=== PATIENT | female | born 1985 | race Caucasian/White ===

== ENCOUNTER 2017-02-26 22:15 | Emergency (ER) | payer BC, OTHER ==
[2017-02-26 22:39] VITALS: BP 127/86
[2017-02-26] MEDS ORDERED: Diazepam 5 MG Tab PO ONE (22:40)
[2017-02-26] MEDS ORDERED: Ketorolac 60 MG/2 ML SDV IM ONE (22:40)
[2017-02-26] MEDS ORDERED: Dexamethasone 4 MG/ML SDV IM ONE (22:40)
--- NOTE | 2017-02-26 22:48 | EDM.PDOC ---
ED HPI GENERAL MEDICAL PROBLEM - General Chief Complaint: Back Pain or Injury Stated Complaint: back pain Time Seen by Provider: 02/26/17 22:40 Source of Information: Reports: Patient History Limitations: Reports: No Limitations - History of Present Illness INITIAL COMMENTS - FREE TEXT/NARRATIVE: PT STATES WHILE WORKING THIS EVENING ABOUT 1930 SHE DEVELOPED LOW BACK PAIN. UNSURE OF SPECIFIC INCIDENT BUT WAS MOVING PATIENTS. DENIES FALL, SADDLE ANESTHESIA, BOWEL OR URINARY INCONT, FLANK PAIN, N/V/D, CP, OR SOB. Onset Date: 02/26/17 Onset Time: 19:30 Location: Reports: Back Quality: Reports: Ache Severity: Mild Improves with: Reports: Rest Worsens with: Reports: Movement Associated Symptoms: Reports: No Other Symptoms Treatments CLINICAL OUTCOMES MANAGER: Reports: Other (see below) (HYDROCODONE) Other Treatments CLINICAL OUTCOMES MANAGER: 2 hydrocodone Middle Back Pain Score (Numeric/FACES): 8 - Related Data Allergies Allergy/AdvReac Type Severity Reaction Status Date / Time lisinopril Allergy Cough Verified 02/26/17 22:43 Home Meds: Home Meds Hydrochlorothiazide 25 mg PO DAILY 01/25/15 [History] Amoxicillin 875 mg PO BID 02/26/17 [History] DULoxetine [Cymbalta] 30 mg PO DAILY 02/26/17 [History] Past Medical History - Past Health History Medical/Surgical History: Denies Medical/Surgical History Other OB/BYN History: -2 Para-2 Other Musculoskeletal History: knee joints have had problems Social & Family History - Tobacco Use Smoking Status *Q: Former Smoker Years of Tobacco use: 16 Used Tobacco, but Quit: Yes Month Tobacco Last Used: September 2014 Second Hand Smoke Exposure: No - Alcohol Use Days Per Week of Alcohol Use: 0 - Recreational Drug Use Recreational Drug Use: No - Living Situation & Occupation Living situation: Reports: Single Occupation: Employed ED ROS GENERAL - Review of Systems Review Of Systems: ROS reveals no pertinent complaints other than HPI. Constitutional: Reports: No Symptoms HEENT: Reports: No Symptoms Respiratory: Reports: No Symptoms Cardiovascular: Reports: No Symptoms Endocrine: Reports: No Symptoms GI/Abdominal: Reports: No Symptoms : Reports: No Symptoms Musculoskeletal: Reports: Back Pain Skin: Reports: No Symptoms Neurological: Reports: No Symptoms Psychiatric: Reports: No Symptoms Hematologic/Lymphatic: Reports: No Symptoms Immunologic: Reports: No Symptoms ED EXAM,LOWER BACK PAIN/INJURY - Physical Exam Exam: See Below Exam Limited By: No Limitations General Appearance: Alert, WD/WN, No Apparent Distress Throat/Mouth: Normal Inspection, Normal Oropharynx, No Airway Compromise Head: Atraumatic, Normocephalic Neck: Normal Inspection, Supple, Non-Tender Respiratory/Chest: No Respiratory Distress, Lungs Clear Cardiovascular: Regular Rate, Rhythm, No Murmur GI/Abdominal: Normal Bowel Sounds, Soft, Non-Tender Back Exam: Decreased Range of Motion (SECONDARY TO PAIN), Paraspinal Tenderness. No: CVA Tenderness (L), CVA Tenderness (R), Vertebral Tenderness Extremities: Normal Inspection, Non-Tender, No Pedal Edema Neurological: Alert, Normal Mood/Affect, Normal Dorsiflexion, Normal Plantar Flexion, No Motor/Sensory Deficits, Oriented x 3 Psychiatric: Normal Affect, Normal Mood Skin Exam: Warm, Dry, Intact, Normal Color, No Rash Lymphatic: No Adenopathy Course - Vital Signs Last Recorded V/S: Last Vital Signs Temp 97.6 F 02/26/17 22:32 Pulse 82 02/26/17 22:32 Resp 20 02/26/17 22:32 BP 127/86 02/26/17 22:32 Pulse Ox 97 02/26/17 22:32 - Orders/Labs/Meds Orders: Active Orders 24 hr Category Date Time Status Dexamethasone Med 02/26/17 22:40 Once 8 mg IM ONETIME ONE Diazepam [Valium] Med 02/26/17 22:40 Once 5 mg PO ONETIME ONE Ketorolac [Toradol] Med 02/26/17 22:40 Once 60 mg IM ONETIME ONE - Re-Assessments/Exams Free Text/Narrative Re-Assessment/Exam: 02/26/17 23:14 PT AFEBRILE, NONTOXIC APPEARING, VSS, DISCOMFORT RELIEVED, AMBULATING WELL. Departure - Departure Time of Disposition: 23:15 Disposition: Home, Self-Care 01 Condition: good Clinical Impression: Muscle strain Low back pain Qualifiers: Chronicity: acute Back pain laterality: unspecified Sciatica presence: without sciatica Qualified Code(s): M54.5 - Low back pain - Discharge Information Instructions: Muscle Strain, [id number], Back Pain, Adult, [id number], Back Injury Prevention, [id number] Forms: ED Department Discharge Additional Instructions: FOLLOW UP WITH YOUR PRIMARY DOCTOR IN 2-3 DAYS. RETURN TO ER SOONER IF SYMPTOMS CONTINUE - My Orders Last 24 Hours: My Active Orders 02/26/17 22:40 Dexamethasone 8 mg IM ONETIME ONE Diazepam [Valium] 5 mg PO ONETIME ONE Ketorolac [Toradol] 60 mg IM ONETIME ONE - Assessment/Plan Last 24 Hours: My Active Orders 02/26/17 22:40 Dexamethasone 8 mg IM ONETIME ONE Diazepam [Valium] 5 mg PO ONETIME ONE Ketorolac [Toradol] 60 mg IM ONETIME ONE Assessment:: LOW BACK PAIN Plan: F/U WITH PCP
== END 2017-02-26 23:30 | disposition home or self-care (01) ==
LOC: KA.ED 22:15
DX: S39.012A Strain of muscle, fascia and tendon of lower back, initial encounter (principal); X58.XXXA Exposure to other specified factors, initial encounter; Y93.89 Activity, other specified; Z87.891 Personal history of nicotine dependence
CPT/HCPCS: 96372; 99283; A9270; J1100; J1885

== ENCOUNTER 2020-07-25 23:45 | Emergency (ER) | payer BC ==
[2020-07-25] MEDS ORDERED: HYDROmorphone 1 MG/ML Syringe IVPUSH ONE (23:57)
[2020-07-26] MEDS ORDERED: Ondansetron 4 MG/2 ML SDV IVPUSH ONE (00:04)
[2020-07-26] MEDS ORDERED: Losartan 50 MG Tab PO ONE (00:28)
[2020-07-26] MEDS ORDERED: Hydrochlorothiazide 25 MG Tab PO ONE (00:28)
--- NOTE | 2020-07-26 00:34 | EDM.PDOC ---
ED HPI GENERAL MEDICAL PROBLEM - General Chief Complaint: Abdominal Pain Stated Complaint: abdominal pain Time Seen by Provider: 07/26/20 00:19 Source of Information: Reports: Patient History Limitations: Reports: No Limitations - History of Present Illness INITIAL COMMENTS - FREE TEXT/NARRATIVE: Patient presents with low-mid abdominal pain that started about 2 hours ago. It is quite severe and she has never had this before. She had a hysterectomy about 18 months ago but still has ovaries. No vomiting, diarrhea or constipation. 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 STEEL ERECTOR History: -2 Para-2 Musculoskeletal History: Reports: Other (See Below) Other Musculoskeletal History: knee joints have had problems Psychiatric History: Reports: Anxiety Endocrine/Metabolic History: Reports: Obesity/BMI 30+ Hematologic History: Reports: Iron Deficiency Social & Family History - Family History Family Medical History: Noncontributory - Caffeine Use Caffeine Use: Reports: Soda - Living Situation & Occupation Living situation: Reports: Single Occupation: Employed ED ROS GENERAL - Review of Systems Review Of Systems: See Below Constitutional: Denies: Fever, Chills, Weakness HEENT: Denies: Ear Pain, Throat Pain, Vision Change Respiratory: Denies: Shortness of Breath, Cough Cardiovascular: Denies: Chest Pain, Lightheadedness, Syncope GI/Abdominal: Reports: Abdominal Pain, Nausea. Denies: Black Stool, Bloody Stool, Constipation, Diarrhea, Vomiting : Denies: Discharge, Dysuria, Flank Pain, Frequency, Hematuria, Urgency, Urinary Retention Musculoskeletal: Reports: No Symptoms Skin: Denies: Cyanosis, Jaundice, Mottled, Pallor, Diaphoresis Neurological: Denies: Confusion, Dizziness, Seizure, Syncope, Trouble Speaking, Difficulty Walking Psychiatric: Denies: Agitation, Anxiety, Confusion ED EXAM, GI/ABD - Physical Exam Exam: See Below Exam Limited By: No Limitations General Appearance: Alert, WD/WN, No Apparent Distress Eyes: Bilateral: Normal Appearance, EOMI Ears: Normal External Exam, Hearing Grossly Normal Nose: Normal Inspection, No Blood Throat/Mouth: Normal Inspection, Normal Voice, No Airway Compromise Head: Atraumatic, Normocephalic Neck: Normal Inspection, Full Range of Motion Respiratory/Chest: No Respiratory Distress, Lungs Clear, Normal Breath Sounds, No Accessory Muscle Use Cardiovascular: Regular Rate, Rhythm, No Murmur GI/Abdominal Exam: Normal Bowel Sounds, Soft, No Organomegaly, No Distention, Tender (low mid abdomen/bladder/ovary region) Back Exam: Normal Inspection, Full Range of Motion. No: CVA Tenderness (L), CVA Tenderness (R) Extremities: Normal Inspection, Normal Range of Motion Neurological: Alert, Oriented, Normal Cognition, No Motor/Sensory Deficits Psychiatric: Normal Affect, Normal Mood Skin Exam: Warm, Dry, Intact, Normal Color, No Rash Course - Vital Signs Last Recorded V/S: Last Vital Signs Temp 97.9 F 07/25/20 23:45 Pulse 72 07/26/20 01:41 Resp 16 07/25/20 23:45 BP 167/115 H 07/26/20 01:41 Pulse Ox 97 07/25/20 23:45 - Orders/Labs/Meds Orders: Active Orders 24 hr Category Date Time Status Abdomen Pelvis w Cont [CT] Stat Exams 07/26/20 00:26 Ordered Labs: Laboratory Tests 07/26/20 07/26/20 07/26/20 Range/Units 00:05 00:05 00:05 WBC 8.49 (5.00-10.00) 10^3/uL RBC 4.67 (3.80-5.50) 10^6/uL Hgb 14.1 (12.0-16.0) g/dL Hct 41.1 (37.0-47.0) % MCV 88.0 (82.0-92.0) fL MCH 30.2 (27.0-31.0) pg MCHC 34.3 (32.0-36.0) g/dL RDW 12.4 (11.5-14.5) % Plt Count 246 (150-400) 10^3/uL MPV 10.2 (7.4-10.4) fL Immature Gran % (Auto) 0.1 (0.0-5.0) % Neut % (Auto) 60.2 (50.0-70.0) % Lymph % (Auto) 31.7 (20.0-40.0) % [place] % (Auto) 5.7 (2.0-8.0) % Eos % (Auto) 2.1 (1.0-3.0) % Baso % (Auto) 0.2 (0.0-1.0) % Neut # (Auto) 5.11 (2.50-7.00) 10^3/uL Lymph # (Auto) 2.69 (1.00-4.00) 10^3/uL [place] # (Auto) 0.48 (0.10-0.80) 10^3/uL Eos # (Auto) 0.18 (0.10-0.30) 10^3/uL Baso # (Auto) 0.02 (0.00-0.10) 10^3/uL Immature Gran # (Auto) 0.01 (0.00-0.50) 10^3/uL Sodium 140 (136-145) mmol/L Potassium 3.5 (3.3-5.3) mmol/L Chloride 104 (98-115) mmol/L Carbon Dioxide 25.3 (21.0-32.0) mmol/L Anion Gap 14.2 (5-15) mmol/L BUN 10 (6-25) mg/dL Creatinine 0.64 (0.51-1.17) mg/dL Est Cr Clr Drug Dosing 103.93 mL/min Estimated GFR (MDRD) > 60 mL/min Glucose 105 H (75 - 99) mg/dL Calcium 9.0 (8.7-10.3) mg/dL Total Bilirubin 0.2 (0.2-1.0) mg/dL AST 17 (15-37) U/L ALT 43 (12-78) U/L Alkaline Phosphatase 84 (46-116) IU/L Total Protein 6.8 (6.4-8.2) g/dL Albumin 3.35 (3.00-4.80) g/dL HCG, Quant < 1 mIU/mL Specimen Type Urine Color (YELLOW) Urine Appearance (CLEAR) Urine pH (5.0-9.0) Ur Specific [place] (1.005-1.030) Urine Protein (NEGATIVE) mg/dL Urine Glucose (UA) (NEGATIVE) mg/dL Urine Ketones (NEGATIVE) mg/dL Urine Occult Blood (NEGATIVE) Urine Nitrite (NEGATIVE) Urine Bilirubin (NEGATIVE) Urine Urobilinogen (0.2-1.0) E.U./dL Ur Leukocyte Esterase (NEGATIVE) 07/26/20 Range/Units 01:15 WBC (5.00-10.00) 10^3/uL RBC (3.80-5.50) 10^6/uL Hgb (12.0-16.0) g/dL Hct (37.0-47.0) % MCV (82.0-92.0) fL MCH (27.0-31.0) pg MCHC (32.0-36.0) g/dL RDW (11.5-14.5) % Plt Count (150-400) 10^3/uL MPV (7.4-10.4) fL Immature Gran % (Auto) (0.0-5.0) % Neut % (Auto) (50.0-70.0) % Lymph % (Auto) (20.0-40.0) % [place] % (Auto) (2.0-8.0) % Eos % (Auto) (1.0-3.0) % Baso % (Auto) (0.0-1.0) % Neut # (Auto) (2.50-7.00) 10^3/uL Lymph # (Auto) (1.00-4.00) 10^3/uL [place] # (Auto) (0.10-0.80) 10^3/uL Eos # (Auto) (0.10-0.30) 10^3/uL Baso # (Auto) (0.00-0.10) 10^3/uL Immature Gran # (Auto) (0.00-0.50) 10^3/uL Sodium (136-145) mmol/L Potassium (3.3-5.3) mmol/L Chloride (98-115) mmol/L Carbon Dioxide (21.0-32.0) mmol/L Anion Gap (5-15) mmol/L BUN (6-25) mg/dL Creatinine (0.51-1.17) mg/dL Est Cr Clr Drug Dosing mL/min Estimated GFR (MDRD) mL/min Glucose (75 - 99) mg/dL Calcium (8.7-10.3) mg/dL Total Bilirubin (0.2-1.0) mg/dL AST (15-37) U/L ALT (12-78) U/L Alkaline Phosphatase (46-116) IU/L Total Protein (6.4-8.2) g/dL Albumin (3.00-4.80) g/dL HCG, Quant mIU/mL Specimen Type Urincc Urine Color Yellow (YELLOW) Urine Appearance Slightly cloudy H (CLEAR) Urine pH 7.0 (5.0-9.0) Ur Specific [place] 1.015 (1.005-1.030) Urine Protein Negative (NEGATIVE) mg/dL Urine Glucose (UA) Negative (NEGATIVE) mg/dL Urine Ketones Negative (NEGATIVE) mg/dL Urine Occult Blood Negative (NEGATIVE) Urine Nitrite Negative (NEGATIVE) Urine Bilirubin Negative (NEGATIVE) Urine Urobilinogen 0.2 (0.2-1.0) E.U./dL Ur Leukocyte Esterase Negative (NEGATIVE) Meds: Medications Discontinued Medications Generic Name Dose Route Start Last Admin Trade Name Vanq PRN Reason Stop Dose Admin Hydrochlorothiazide 25 mg 07/26/20 00:28 07/26/20 00:44 Hydrochlorothiazide PO 07/26/20 00:29 25 mg ONETIME ONE Administration Hydromorphone HCl 1 mg 07/25/20 23:57 07/26/20 00:15 Dilaudid IVPUSH 07/25/20 23:58 1 mg ONETIME ONE Administration Ketorolac Tromethamine 30 mg 07/26/20 01:46 Toradol IVPUSH 07/26/20 01:47 ONETIME ONE Losartan Potassium 50 mg 07/26/20 00:28 07/26/20 00:44 Cozaar PO 07/26/20 00:29 50 mg ONETIME ONE Administration Ondansetron HCl 4 mg 07/26/20 00:04 07/26/20 00:10 Zofran IVPUSH 07/26/20 00:05 4 mg ONETIME ONE Administration - Re-Assessments/Exams Free Text/Narrative Re-Assessment/Exam: 07/26/20 00:34 Pain is much better with the Dilaudid. BP is elevated and she says she didn't take her BP meds today so we will give now. 07/26/20 01:[address] are good. Pain is okay except when she moves wrong. Discussed findings and plan with patient. Will give toradol now and get ready to discharge to home. Pt is okay with plan; she just wanted to know there is nothing seriously wrong. 07/26/20 02:07 Discharged to home in stable condition. Departure - Departure Time of Disposition: 01:49 Disposition: Home, Self-Care 01 Condition: Good Clinical Impression: Abdominal pain Qualifiers: Abdominal location: lower abdomen, unspecified Qualified Code(s): R10.30 - Lower abdominal pain, unspecified - Discharge Information Instructions: Abdominal Pain, Adult, [id number] Forms: ED Department Discharge Additional Instructions: Drink 8 cups of water daily. Follow up with your PCP in 1-2 days if not resolving. Return to ER if worsening significantly. Sepsis Event Note (ED) - Evaluation Sepsis Screening Result: No Definite Risk - Focused Exam Vital Signs: Vital Signs Temp Pulse Resp BP BP Pulse Ox 07/26/20 01:41 72 167/115 H 07/26/20 01:23 78 177/118 H 07/26/20 00:44 186/123 H 07/25/20 23:45 97.9 F 96 16 186/123 H 97 - My Orders Last 24 Hours: My Active Orders 07/26/20 00:26 Abdomen Pelvis w Cont [CT] Stat - Assessment/Plan Last 24 Hours: My Active Orders 07/26/20 00:26 Abdomen Pelvis w Cont [CT] Stat
[2020-07-26 00:42] LABS: ANION GAP 14.2 mmol/L (5-15); CHLORIDE,CL 104 mmol/L (98-115); SODIUM,NA 140 mmol/L (136-145)
[2020-07-26 01:41] VITALS: BP 167/115; PULSE 72
[2020-07-26] MEDS ORDERED: Ketorolac 30 MG/ML SDV IVPUSH ONE (01:46)
[2020-07-27] MEDS ORDERED: Sodium Chloride 0.9% 50 ML IV SCH (07:45)
[2020-07-27] MEDS ORDERED: Iopamidol 755 Mg/ML 100 ML Bottle IV ONE (07:45)
== END 2020-07-26 02:00 | disposition home or self-care (01) ==
LOC: KA.ED 23:45
DX: R10.30 Lower abdominal pain, unspecified (principal); J45.909 Unspecified asthma, uncomplicated; I10 Essential (primary) hypertension; E66.9 Obesity, unspecified; Z88.8 Allergy status to other drugs, medicaments and biological substances
CPT/HCPCS: 36415; 74177; 80053; 81003; 84702; 85025; 96374; 96375; 99284; 99284-25; A9270-GY; J1170; J1885; J2405

== ENCOUNTER 2020-09-04 03:37 | Emergency (ER) | payer BC ==
[2020-09-04] MEDS ORDERED: Aspirin 81 MG Tab.Chew PO ONE (05:13)
[2020-09-04] MEDS ORDERED: Potassium Chloride 20 MEQ Tab.ER PO ONE (05:42)
--- NOTE | 2020-09-04 05:57 | EDM.PDOC ---
ED HPI GENERAL MEDICAL PROBLEM - General Chief Complaint: General Stated Complaint: chest pain, palpitations Time Seen by Provider: 09/04/20 04:17 Source of Information: Reports: Patient History Limitations: Reports: No Limitations - History of Present Illness INITIAL COMMENTS - FREE TEXT/NARRATIVE: Patient presents with left upper chest pain that started at 0120 while she was sitting in her recliner on the phone. It feels like her heart is skipping beats along with tightness. The skipping sensation is worse briefly when she fully exhales. These have been constant for the last 3.5 hours but are a little worse sitting up than lying down. The feeling goes up to her neck at times. 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 She has felt brief heart-skipping feeling occasionally over the years but not for hours like now. Two years ago she wound found to have Factor V Leiden. She was tested when her mother had a DVT and was found to have it. She has never had any problems or symptoms of it and hasn't had to use blood thinners. Left Middle Chest Pain Score (Numeric/FACES): 4 - Related Data Allergies Allergy/AdvReac Type Severity Reaction Status Date / Time lisinopril AdvReac Cough Verified 09/04/20 04:14 Home Meds: Home Meds hydroCHLOROthiazide [Hydrochlorothiazide] 25 mg PO DAILY 01/25/15 [History] Losartan Potassium [Cozaar] 100 mg PO DAILY 08/30/18 [History] LORazepam [Ativan] 1 mg PO BID PRN 07/26/20 [History] Cyclobenzaprine [Flexeril] 10 mg PO BID PRN 09/04/20 [History] Omeprazole 20 mg PO DAILY 09/04/20 [History] Ondansetron [Ondansetron ODT] 8 mg PO Q6H PRN 09/04/20 [History] Past Medical History - Past Health History Medical/Surgical History: Denies Medical/Surgical History HEENT History: Reports: Impaired Vision Other HEENT History: wears glasses Cardiovascular History: Reports: Hypertension Respiratory History: Reports: Asthma Gastrointestinal History: Reports: GERD CARDIAC CATH TECH History: Reports: Other CARDIAC CATH TECH History: -2 Para-2 Musculoskeletal History: Reports: Other (See Below) Other Musculoskeletal History: knee joints have had problems Psychiatric History: Reports: Anxiety Endocrine/Metabolic History: Reports: Obesity/BMI 30+ Hematologic History: Reports: Iron Deficiency - Infectious Disease History Infectious Disease History: Reports: Chicken Pox, Influenza - Past Surgical History Female Surgical History: Reports: Hysterectomy Social & Family History - Family History Family Medical History: No Pertinent Family History - Tobacco Use Tobacco Use Status *Q: Current Every Day Tobacco User Years of Tobacco use: 20 Packs/Tins Daily: 0.5 - Caffeine Use Caffeine Use: Reports: Soda Other Caffeine Use: "1 [place] Yello a day" - Recreational Drug Use Recreational Drug Use: No - Living Situation & Occupation Living situation: Reports: Single Occupation: Employed ED ROS GENERAL - Review of Systems Review Of Systems: See Below Constitutional: Denies: Fever, Chills, Malaise, Weakness HEENT: Denies: Ear Pain, Glasses, Vision Change Respiratory: Denies: Shortness of Breath, Cough Cardiovascular: Reports: Chest Pain, Palpitations. Denies: Syncope GI/Abdominal: Denies: Abdominal Pain, Diarrhea, Vomiting : Denies: Dysuria Musculoskeletal: Denies: Shoulder Pain, Arm Pain, Back Pain, Hand Pain Skin: Denies: Cyanosis, Jaundice, Mottled, Pallor, Diaphoresis Neurological: Denies: Confusion, Dizziness, Headache, Seizure, Syncope, Trouble Speaking, Difficulty Walking Psychiatric: Reports: Anxiety (She has anxiety but hasn't had chest pain from it before). Denies: Agitation, Confusion Hematologic/Lymphatic: Denies: Anemia, Easy Bleeding ED EXAM, GENERAL - Physical Exam Exam: See Below Exam Limited By: No Limitations General Appearance: Alert, WD/WN, No Apparent Distress Eye Exam: Bilateral Eye: EOMI, Normal Inspection, PERRL Ears: Normal External Exam, Hearing Grossly Normal Nose: Normal Inspection, No Blood Throat/Mouth: Normal Inspection, Normal Lips, Normal Voice, No Airway Compromise Head: Atraumatic, Normocephalic Neck: Normal Inspection, Supple, Full Range of Motion. No: Carotid Bruit Respiratory/Chest: No Respiratory Distress, Lungs Clear, Normal Breath Sounds, No Accessory Muscle Use Cardiovascular: Normal Peripheral Pulses, Regular Rate, Rhythm, No Edema, No Gallop, No JVD, No Murmur GI/Abdominal: Normal Bowel Sounds, Soft, Non-Tender, No Organomegaly, No Di stention Back Exam: Normal Inspection, Full Range of Motion Extremities: Normal Inspection, Normal Range of Motion, No Pedal Edema Neurological: Alert, Oriented, Normal Cognition, No Motor/Sensory Deficits Psychiatric: Normal Affect, Normal Mood Skin Exam: Warm, Dry, Intact, Normal Color, No Rash Course - Vital Signs Last Recorded V/S: Last Vital Signs Temp 96.9 F 09/04/20 03:45 Pulse 80 09/04/20 05:31 Resp 18 09/04/20 05:31 BP 96/69 09/04/20 05:31 Pulse Ox 98 09/04/20 05:31 - Orders/Labs/Meds Orders: Active Orders 24 hr Category Date Time Status EKG Documentation Completion [RC] ASDIRECTED Care 09/04/20 04:15 Active BASIC METABOLIC PANEL,BMP [CHEM] Stat Lab 09/04/20 04:45 Ordered CBC WITH AUTO DIFF [HEME] Stat Lab 09/04/20 04:45 Ordered EKG 12 Lead [EK] Stat Ther 09/04/20 03:55 Ordered Meds: Medications Discontinued Medications Generic Name Dose Route Start Last Admin Trade Name Sandra PRN Reason Stop Dose Admin Aspirin 324 mg 09/04/20 05:13 09/04/20 05:15 Aspirin PO 09/04/20 05:14 324 mg ONETIME ONE Administration Potassium Chloride 20 meq 09/04/20 05:42 Klor-Con M20 PO 09/04/20 05:43 ONETIME ONE - Re-Assessments/Exams Free Text/Narrative Re-Assessment/Exam: 09/04/20 06:01 With no lab techs available, labs are sent to [facility] showing potassium 2.7. The rest of BMP and CBC are normal. Troponin was run up to [place] and is pending at this time. 09/04/20 06:36 Troponin is 0.00 and patient says the chest tightness is gone. She is still feeling the palpitations but just occasionally, not constant like it was. We have given Klor Con 20 meq and a liter of NS is running because she was a little hypotensive. BP has improved. She is having a little vertigo since we gave the potassium and saline. 09/04/20 06:46 We discussed that the thiazide diuretic may be causing her low potassium. She says she has been on it for years and has never had low potassium before. 09/04/20 07:14 I discussed findings and treatment plan with patient. She feels better and ready to go home. With the normal tests I'm confident this is not due to cardiac ischemia. We discussed that it could be anxiety related. Since she was having the feeling of palpitations constantly for over half an hour while on the monitor and during EKG, neither showing any rhythm irregularity, there doesn't seem to be any concern for dysrhythmia. She improved after the potassium which may or may not be coincidental. Patient stable at discharge. Departure - Departure Time of Disposition: 07:14 Disposition: Home, Self-Care 01 Condition: Good Clinical Impression: Palpitations with regular cardiac rhythm, Hypokalemia - Discharge Information Instructions: Palpitations, [id number], Hypokalemia, Potassium Content of Foods Referrals: Bia Vera MD [Primary Care Provider] - Additional Instructions: Follow up with your PCP early next week to recheck potassium. If symptoms return you should recheck before the weekend with your PCP if possible. Return to ER if worsening. Sepsis Event Note (ED) - Evaluation Sepsis Screening Result: No Definite Risk - Focused Exam Vital Signs: Vital Signs Temp Pulse Resp BP Pulse Ox 09/04/20 05:31 80 18 96/69 98 09/04/20 05:16 81 19 108/75 97 09/04/20 05:01 82 103/71 97 09/04/20 04:46 82 14 115/74 96 09/04/20 04:31 80 16 127/81 98 09/04/20 04:16 81 17 113/80 97 09/04/20 04:01 83 30 H 118/78 98 09/04/20 03:45 96.9 F 91 19 126/85 99 - My Orders Last 24 Hours: My Active Orders 09/04/20 03:55 EKG 12 Lead [EK] Stat 09/04/20 04:15 EKG Documentation Completion [RC] ASDIRECTED 09/04/20 04:45 BASIC METABOLIC PANEL,BMP [CHEM] Stat CBC WITH AUTO DIFF [HEME] Stat - Assessment/Plan Last 24 Hours: My Active Orders 09/04/20 03:55 EKG 12 Lead [EK] Stat 09/04/20 04:15 EKG Documentation Completion [RC] ASDIRECTED 09/04/20 04:45 BASIC METABOLIC PANEL,BMP [CHEM] Stat CBC WITH AUTO DIFF [HEME] Stat
[2020-09-04] MEDS ORDERED: Sodium Chloride 0.9% 1,000 ML IV ONE (06:20)
[2020-09-04 07:17] VITALS: BP 109/64; PULSE 72
[2020-09-04 10:18] LABS: ANION GAP 13.7 mmol/L (5-15); CHLORIDE,CL 100 mmol/L (98-115); SODIUM,NA 136 mmol/L (136-145)
== END 2020-09-04 07:35 | disposition home or self-care (01) ==
LOC: KA.ED 03:37
DX: E87.6 Hypokalemia (principal); I10 Essential (primary) hypertension; J45.909 Unspecified asthma, uncomplicated; K21.9 Gastro-esophageal reflux disease without esophagitis; F17.210 Nicotine dependence, cigarettes, uncomplicated; E66.9 Obesity, unspecified; Z68.42 Body mass index [BMI] 45.0-49.9, adult; Z88.8 Allergy status to other drugs, medicaments and biological substances; Z79.899 Other long term (current) drug therapy
CPT/HCPCS: 36415; 80048; 85025; 93005; 99285; A9270; J7030; 99284